=== PATIENT | female | born 1945 | race African-American/Black ===

== ENCOUNTER 2020-02-21 18:06 | Emergency (ER) | payer MEDICARE ==
[~2020-02-21] VITALS: Ht 160 cm; Wt 84.4 kg
[2020-02-21] MEDS ORDERED: METF-440 PO (18:22)
[2020-02-21] MEDS ORDERED: BENA20TA9 PO (18:22)
--- NOTE | 2020-02-21 18:30 | NUR ---
[email or web address], medical screening exam in progress
[2020-02-21] MEDS ORDERED: ONDANSETRON ODT 4 MG TAB.RAPDIS ONE (18:43)
[2020-02-21] MEDS ORDERED: CYCLOBENZAPRINE HCL 10 MG TABLET ONE (18:43)
[2020-02-21] MEDS ORDERED: HYDROCODONE/APAP 10-325 MG TABLET ONE (18:43)
[2020-02-21] MEDS ORDERED: CYCLOBENZAPRINE HCL 10 MG TABLET PO ONE (18:45)
[2020-02-21] MEDS ORDERED: ONDANSETRON ODT 4 MG TAB.RAPDIS SL ONE (18:45)
[2020-02-21] MEDS ORDERED: HYDROCODONE/APAP 10-325 MG TABLET PO ONE (18:45)
--- NOTE | 2020-02-21 18:50 | NUR ---
Patient is resting comfortably on gurney while watching bedside TV.
--- NOTE | 2020-02-21 19:05 | NUR ---
Patient discharged to home in stable condition & steady gait. Written and verbal after care instructions given to patient. Patient verbalized understanding & compliance of instructions. Stressed follow up with her primary doctor or return to ER for worsening s/s.
== END 2020-02-21 19:16 | disposition home or self-care (01) ==
LOC: ER 18:08
DX: M54.41 Lumbago with sciatica, right side (principal); I10 Essential (primary) hypertension; E11.9 Type 2 diabetes mellitus without complications; Z79.84 Long term (current) use of oral hypoglycemic drugs; Z79.899 Other long term (current) drug therapy
CPT/HCPCS: 72100; A4663; Q0162